=== PATIENT | male | born 1975 | race Hispanic/Latino ===

== ENCOUNTER 2017-08-02 10:33 | Emergency (ER) | payer SELFPAY ==
[2017-08-02] MEDS ORDERED: IOPAMIDOL-370 75 ML VIAL IV ONE (11:50)
[2017-08-02 11:54] LABS: APPEARANCE,URINE Clear (CLEAR); BASOPHILS % (AUTO) 0.7 % (0.0-5.0); BILIRUBIN,URINE Small (NEGATIVE); COLOR,URINE Dark Yellow (YELLOW); EOSINOPHILS % (AUTO) 0.7 % (0.0-8.0); GLUCOSE, URINE (UA) TRACE mg/dL (NEGATIVE); HEMATOCRIT 49.4 % (42-54); KETONES,URINE Trace mg/dL (NEGATIVE); LEUKOCYTE ESTERASE ,URINE Negative (NEGATIVE); LYMPHOCYTES % (AUTO) 13.1 % (21.0-51.0); MEAN CORPUSCULAR HEMOGLOBIN 30.7 pg (27.0-33.0); MEAN CORPUSCULAR HGB CONC 34.2 g/dL (32.0-36.0); MEAN CORPUSCULAR VOLUME 89.7 fL (79-99); MONOCYTES % (AUTO) 13.7 % (3.0-13.0); NEUTROPHILS % (AUTO) 71.8 % (40.0-77.0); NITRATE,URINE Negative (NEGATIVE); OCCULT BLOOD,URINE Large (NEGATIVE); PLATELET COUNT (AUTO) 235 K/uL (130-400); PROTEIN,URINE Trace (NEGATIVE); RED BLOOD CELL COUNT(AUTO) 5.51 MIL/uL (4.50-6.20); RED CELL DISTRIBUTION WIDTH 13.8 % (11.0-15.5); WHITE BLOOD COUNT (AUTO) 11.8 K/uL (4.8-10.8)
[2017-08-02 12:01] LABS: POTASSIUM 3.7 mmol/L (3.5-5.1)
[2017-08-02 12:07] LABS: BACTERIA,URINE Rare /HPF (None Seen); MUCUS,URINE Moderate LPF (None Seen); SQUAMOUS EPITHELIAL CELL,UR Rare /HPF (0-2); WBC,URINE None Seen /HPF (0-1)
== END 2017-08-02 12:51 | disposition home or self-care (01) ==
LOC: EDH 10:33
DX: K62.89 Other specified diseases of anus and rectum (principal); Z98.890 Other specified postprocedural states
CPT/HCPCS: 36415; 80048; 81001; 85025; Q9967

== ENCOUNTER 2020-07-07 12:10 | Inpatient (IN) | payer SELFPAY ==
[~2020-07-07] VITALS: Ht 175.3 cm; Wt 110.5 kg
[2020-07-07] MEDS ORDERED: CEFTRIAXONE SODIUM 1 GM ONE (15:14)
[2020-07-07 15:18] LABS: APPEARANCE,URINE Cloudy (CLEAR); BILIRUBIN,URINE Negative (NEGATIVE); COLOR,URINE Dark Yellow (YELLOW); GLUCOSE, URINE (UA) Negative (NEGATIVE); KETONES,URINE 15 mg/dL (NEGATIVE); LEUKOCYTE ESTERASE ,URINE Small (NEGATIVE); NITRATE,URINE Negative (NEGATIVE); OCCULT BLOOD,URINE Large (NEGATIVE); PROTEIN,URINE 300 mg/dL (NEGATIVE)
[2020-07-07 15:21] LABS: BASOPHILS % (AUTO) 0.5 % (0.0-5.0); EOSINOPHILS % (AUTO) 0.5 % (0.0-8.0); HEMATOCRIT 52.6 % (42-54); MONOCYTES % (AUTO) 8.1 % (3.0-13.0); NEUTROPHILS % (AUTO) 81.7 % (40.0-77.0); PLATELET COUNT (AUTO) 290 K/uL (130-400); RED BLOOD CELL COUNT(AUTO) 5.78 MIL/uL (4.50-6.20); RED CELL DISTRIBUTION WIDTH 13.4 % (11.0-15.5); WHITE BLOOD COUNT (AUTO) 13.2 K/uL (4.8-10.8)
[2020-07-07 15:40] LABS: BACTERIA,URINE Few /HPF (None Seen); MUCUS,URINE Few LPF (None Seen); SQUAMOUS EPITHELIAL CELL,UR Few /HPF (0-2)
[2020-07-07 16:29] LABS: CREATININE 0.9 mg/dL (0.5-1.5); POTASSIUM 4.6 mmol/L (3.5-5.1)
[2020-07-07] MEDS ORDERED: ZOSYN 3.375GM+NS 50ML 50 ML IV ONE (16:32)
[2020-07-07 16:33] LABS: ALBUMIN 3.9 g/dL (3.5-5.0); TOTAL PROTEIN, SERUM 8.6 g/dL (6.0-8.3)
[2020-07-07] MEDS ORDERED: VANCOMYCIN PROTOCOL PER PHARMACY IV SCH (18:00)
[2020-07-07] MEDS ORDERED: ONDANSETRON HCL 4 MG/2 ML VIAL IV PRN (18:15)
[2020-07-07] MEDS: SODIUM CHLORIDE 0.9% 1000ML 1,000 ML IV SCH (18:15)
[2020-07-07] MEDS ORDERED: LACTULOSE 20 GM/30 ML UDCUP PO PRN (18:15)
[2020-07-07] MEDS ORDERED: ACETAMINOPHEN 325 MG TAB PO PRN (18:15)
[2020-07-07] MEDS ORDERED: VANCOMYCIN 1GM+NS 250ML 250 ML IV SCH (18:30)
[2020-07-07] MEDS ORDERED: COMPOUND IV REFRIGERATED 1 EACH IVSOLN MISC PRN ×2 (18:30→23:45)
[2020-07-07] MEDS ORDERED: VANCOMYCIN 2 GM in SODIUM CHLORIDE 0.9% 500ML 500 ML IV ONE (19:00)
[2020-07-07] MEDS: FAMOTIDINE/PF 20 MG/2 ML VIAL IV SCH (21:00)
[2020-07-07] MEDS ORDERED: ZOSYN 3.375GM+NS 50ML 50 ML IV SCH (22:00)
[2020-07-07] MEDS ORDERED: LINEZOLID 600 MG/ISO-OSM 300 ML IV SCH (23:30)
[2020-07-08] VITALS (27 sets, daily range): BP systolic 107–137; BP diastolic 62–86
[2020-07-08] MEDS ORDERED: FAMOTIDINE/PF 20 MG/2 ML VIAL IV ONE (00:46)
[2020-07-08] MEDS: ZOSYN 3.375GM+NS 50ML 50 ML IV SCH ×3 (05:53→21:10)
[2020-07-08 05:56] LABS: BASOPHILS % (AUTO) 0.4 % (0.0-5.0); EOSINOPHILS % (AUTO) 0.6 % (0.0-8.0); HEMATOCRIT 47.6 % (42-54); LYMPHOCYTES % (AUTO) 10.1 % (21.0-51.0); MEAN CORPUSCULAR VOLUME 90.8 fL (79-99); MONOCYTES % (AUTO) 12.6 % (3.0-13.0); NEUTROPHILS % (AUTO) 75.9 % (40.0-77.0); PLATELET COUNT (AUTO) 280 K/uL (130-400); RED BLOOD CELL COUNT(AUTO) 5.24 MIL/uL (4.50-6.20); RED CELL DISTRIBUTION WIDTH 13.2 % (11.0-15.5)
[2020-07-08 06:28] LABS: ALBUMIN 3.2 g/dL (3.5-5.0); CREATININE 1.1 mg/dL (0.5-1.5); POTASSIUM 3.9 mmol/L (3.5-5.1); TOTAL PROTEIN, SERUM 6.9 g/dL (6.0-8.3)
[2020-07-08] MEDS: FAMOTIDINE/PF 20 MG/2 ML VIAL IV SCH ×2 (08:44→21:10)
[2020-07-08] MEDS ORDERED: ENOXAPARIN SODIUM 40 MG/0.4 ML SYRINGE SQ SCH (09:00)
[2020-07-08] MEDS ORDERED: MORPHINE SULFATE 2 MG/ML 1ML SYG IVP PRN (09:15)
[2020-07-08] MEDS ORDERED: DiphenhydrAMINE HCL 50 MG/ML VIAL IV SCH (10:00)
[2020-07-08] MEDS ORDERED: DIPHENHYDRAMINE HCL 25 MG CAPSULE PO PRN (10:15)
[2020-07-08] MEDS: LINEZOLID 600 MG/ISO-OSM 300 ML IV SCH (12:53)
[2020-07-08] MEDS: SODIUM CHLORIDE 0.9% 1000ML 1,000 ML IV SCH ×2 (14:15→16:40)
[2020-07-08] MEDS: KETOROLAC TROMETHAMINE 15MG/ML IV PRN ×2 (14:45→22:42)
[2020-07-08] MEDS ORDERED: MIDAZOLAM HCL 1 MG/ML 2ML VIAL ONE (15:28)
[2020-07-08] MEDS ORDERED: LIDOCAINE PF 2% 5ML ABBOJECT ONE (15:28)
[2020-07-08] MEDS ORDERED: ONDANSETRON HCL 4 MG/2 ML VIAL ONE (15:29)
[2020-07-08] MEDS ORDERED: ROCURONIUM 10MG/1ML SYR 10 MG/ML ML ONE (15:29)
[2020-07-08] MEDS ORDERED: FENTANYL CITRATE PF 50 MCG/1 ML 2ML VIAL ONE ×2 (15:29→16:14)
[2020-07-08] MEDS ORDERED: PROPOFOL 10 MG/ML 20ML VIAL IV ONE (15:29)
[2020-07-08] MEDS ORDERED: GLYCOPYRROLATE 1 MG/5 ML SYRINGE ONE (16:13)
[2020-07-08] MEDS ORDERED: NEOSTIGMINE 5MG/5ML SYR IV ONE (16:13)
[2020-07-08] MEDS ORDERED: BUPIVACAINE/PF 0.5% 30ML VIAL ONE (16:18)
[2020-07-09 00:02] VITALS: BP 127/76
[2020-07-09] MEDS: LINEZOLID 600 MG/ISO-OSM 300 ML IV SCH ×3 (00:21→23:59)
[2020-07-09 03:52] VITALS: BP 116/69
[2020-07-09] MEDS: KETOROLAC TROMETHAMINE 15MG/ML IV PRN ×2 (04:30→15:52)
[2020-07-09 05:47] LABS: BASOPHILS % (AUTO) 0.6 % (0.0-5.0); EOSINOPHILS % (AUTO) 3.7 % (0.0-8.0); HEMATOCRIT 48.5 % (42-54); LYMPHOCYTES % (AUTO) 17.2 % (21.0-51.0); MEAN CORPUSCULAR HEMOGLOBIN 30.7 pg (27.0-33.0); MEAN CORPUSCULAR HGB CONC 33.4 g/dL (32.0-36.0); MEAN CORPUSCULAR VOLUME 91.9 fL (79-99); PLATELET COUNT (AUTO) 278 K/uL (130-400); RED BLOOD CELL COUNT(AUTO) 5.28 MIL/uL (4.50-6.20); RED CELL DISTRIBUTION WIDTH 13.2 % (11.0-15.5); WHITE BLOOD COUNT (AUTO) 9.4 K/uL (4.8-10.8)
[2020-07-09] MEDS: ZOSYN 3.375GM+NS 50ML 50 ML IV SCH ×3 (05:51→21:09)
[2020-07-09 06:06] LABS: ALBUMIN 3.4 g/dL (3.5-5.0); CREATININE 1.2 mg/dL (0.5-1.5); POTASSIUM 3.8 mmol/L (3.5-5.1); TOTAL PROTEIN, SERUM 7.6 g/dL (6.0-8.3)
[2020-07-09 07:36] VITALS: BP 120/74
[2020-07-09] MEDS: FAMOTIDINE/PF 20 MG/2 ML VIAL IV SCH ×2 (09:22→21:09)
[2020-07-09] MEDS: ACETAMINOPHEN-CODEINE 300/30MG TAB PO PRN ×2 (09:34→21:10)
[2020-07-09 11:29] VITALS: BP 116/75
[2020-07-09 15:51] VITALS: BP 131/88
[2020-07-09 19:53] VITALS: BP 119/69
[2020-07-10] VITALS (7 sets, daily range): BP systolic 115–130; BP diastolic 75–87
[2020-07-10] MEDS: KETOROLAC TROMETHAMINE 15MG/ML IV PRN (03:03)
[2020-07-10 05:18] LABS: EOSINOPHILS % (AUTO) 7.8 % (0.0-8.0); HEMATOCRIT 43.7 % (42-54); LYMPHOCYTES % (AUTO) 19.7 % (21.0-51.0); MEAN CORPUSCULAR HEMOGLOBIN 30.6 pg (27.0-33.0); MEAN CORPUSCULAR HGB CONC 33.6 g/dL (32.0-36.0); MONOCYTES % (AUTO) 14.7 % (3.0-13.0); NEUTROPHILS % (AUTO) 56.5 % (40.0-77.0); PLATELET COUNT (AUTO) 251 K/uL (130-400); RED CELL DISTRIBUTION WIDTH 13.1 % (11.0-15.5); WHITE BLOOD COUNT (AUTO) 6.3 K/uL (4.8-10.8)
[2020-07-10 05:37] LABS: ALBUMIN 2.9 g/dL (3.5-5.0); BILIRUBIN,TOTAL 0.6 mg/dL (0.2-1.0); CREATININE 1.3 mg/dL (0.5-1.5); POTASSIUM 3.6 mmol/L (3.5-5.1); TOTAL PROTEIN, SERUM 6.5 g/dL (6.0-8.3)
[2020-07-10] MEDS: ZOSYN 3.375GM+NS 50ML 50 ML IV SCH ×3 (05:46→21:58)
[2020-07-10] MEDS: ACETAMINOPHEN-CODEINE 300/30MG TAB PO PRN ×4 (06:30→21:58)
[2020-07-10] MEDS ORDERED: TYL3B PO (07:50)
[2020-07-10] MEDS: FAMOTIDINE 20MG TAB 20 MG TAB PO SCH (10:46)
[2020-07-10] MEDS: LINEZOLID 600 MG/ISO-OSM 300 ML IV SCH (11:58)
[2020-07-11] MEDS: LINEZOLID 600 MG/ISO-OSM 300 ML IV SCH ×2 (00:24→11:53)
[2020-07-11] MEDS: KETOROLAC TROMETHAMINE 15MG/ML IV PRN (01:46)
[2020-07-11 03:38] VITALS: BP 116/77
[2020-07-11] MEDS: ACETAMINOPHEN-CODEINE 300/30MG TAB PO PRN ×4 (04:43→21:37)
[2020-07-11] MEDS: ZOSYN 3.375GM+NS 50ML 50 ML IV SCH ×3 (05:39→22:56)
[2020-07-11 08:23] VITALS: BP 112/80
[2020-07-11] MEDS: FAMOTIDINE 20MG TAB 20 MG TAB PO SCH (09:33)
[2020-07-11 13:50] VITALS: BP 112/74
[2020-07-11 16:40] VITALS: BP 129/84
[2020-07-11 20:12] VITALS: BP 131/76
[2020-07-12 00:12] VITALS: BP 129/77
[2020-07-12] MEDS: ACETAMINOPHEN-CODEINE 300/30MG TAB PO PRN ×3 (03:54→16:59)
[2020-07-12 04:12] VITALS: BP 131/86
[2020-07-12] MEDS: ZOSYN 3.375GM+NS 50ML 50 ML IV SCH (06:15)
[2020-07-12 08:46] VITALS: BP 128/81
[2020-07-12] MEDS: FAMOTIDINE 20MG TAB 20 MG TAB PO SCH (12:09)
[2020-07-12] MEDS ORDERED: CEPHALEXIN 500 MG CAPSULE PO SCH (12:30)
[2020-07-12 13:24] VITALS: BP 127/80
[2020-07-12] MEDS ORDERED: CEPH500C2 PO (13:47)
[2020-07-12] MEDS ORDERED: IBUP-2070 PO (13:47)
[2020-07-12 17:11] VITALS: BP 126/81
== END 2020-07-12 19:25 | disposition home or self-care (01) | DRG 346 ==
LOC: EDH 12:10 → EDHIP 12:11 → 3BH 07-08 00:06
PROVIDERS: ADMIT Internal Medicine; ATTEND Internal Medicine
PROC: 0D9P0ZZ Drainage of Rectum, Open Approach (ICD-10-PCS; principal; 2020-07-08 15:00)
DX: K61.1 Rectal abscess (principal); D72.829 Elevated white blood cell count, unspecified; K62.89 Other specified diseases of anus and rectum; M47.815 Spondylosis without myelopathy or radiculopathy, thoracolumbar region; E66.01 Morbid (severe) obesity due to excess calories; Z88.5 Allergy status to narcotic agent; Z88.8 Allergy status to other drugs, medicaments and biological substances; Z68.36 Body mass index [BMI] 36.0-36.9, adult
CPT/HCPCS: 36415; 74176; 80053; 81001; 83605; 85025; 87040; 87070; 87076; 87077; 87186; 87205; A4606; G0378; J0696; J1200; J1650; J1885; J2001; J2020; J2250; J2405; J2543; J2704; J2710; J3010; J3370; J3490; J7040